=== PATIENT | male | born 1935 | race Caucasian/White ===

== ENCOUNTER 2023-02-09 08:41 | Day surgery (SDC) | payer MEDICARE ==
[2023-02-09] MEDS ORDERED: Sodium Chloride 0.9% 10 ML Syringe FLUSH PRN (10:30)
== END 2023-02-09 10:24 | disposition home or self-care (01) ==
LOC: JP.SDS 08:41
PROVIDERS: ATTEND Ophthalmology
DX: H26.9 Unspecified cataract (principal); Z95.2 Presence of prosthetic heart valve; C85.90 Non-Hodgkin lymphoma, unspecified, unspecified site; Z85.828 Personal history of other malignant neoplasm of skin
CPT/HCPCS: 66984; J3490